=== PATIENT | female | born 1985 | race Caucasian/White ===

== ENCOUNTER 2017-07-11 07:50 | Emergency (ER) | payer OTHER ==
[2017-07-11] MEDS ORDERED: Dexamethasone 10 MG/ML VIAL ONE (08:10)
[2017-07-11] MEDS ORDERED: diphenhydrAMINE 50 MG/ML VIAL ONE (08:10)
[2017-07-11] MEDS ORDERED: Ondansetron HCl/PF 4 MG/2 ML Vial ONE (08:10)
[2017-07-11] MEDS ORDERED: Metoclopramide HCl 10 MG/2 ML VIAL ONE (08:10)
== END 2017-07-11 09:41 | disposition home or self-care (01) ==
LOC: ERS 07:50
DX: R51 Headache (principal)
CPT/HCPCS: 96365; 96375; J1100; J1200; J2405; J2765

== ENCOUNTER 2017-08-12 14:57 | Outpatient (CLI) | payer OTHER | END 2017-08-12 14:58 | disposition home or self-care (01) | LOC: BICMRI 14:57 | PROVIDERS: ATTEND Internal Medicine | DX: M50.10 Cervical disc disorder with radiculopathy, unspecified cervical region (principal); R51 Headache | CPT/HCPCS: 70551; 72141 ==

== ENCOUNTER 2017-08-15 08:50 | Emergency (ER) | payer OTHER | END 2017-08-15 11:09 | disposition home or self-care (01) | LOC: ERS 08:50 | DX: M54.2 Cervicalgia (principal) | CPT/HCPCS: 99283 ==

== ENCOUNTER 2017-08-18 12:25 | Outpatient (CLI) | payer OTHER | END 2017-08-18 12:26 | disposition home or self-care (01) | LOC: BICRAD 12:25 | PROVIDERS: ATTEND Specialist | DX: M47.812 Spondylosis without myelopathy or radiculopathy, cervical region (principal) | CPT/HCPCS: 72040 ==

== ENCOUNTER 2019-12-14 08:21 | Outpatient (CLI) | payer OTHER ==
--- NOTE | 2019-12-14 08:46 | RAD ---
EXAM: XR Sacroiliac Joints >=3 View DATE: 12/14/2019 12:00 AM INDICATION: Sacroiliac joint inflammation COMPARISON: None. FINDING: The subchondral bone plates of the SI joints are preserved. No periarticular erosions are e vident. The sacral arcs are preserved. No acute fracture is evident. Small phlebolith is seen within the right hemipelvis. IMPRESSION:No radiographic evidence of sacroiliitis.
--- NOTE | 2019-12-14 08:49 | RAD ---
RADIOGRAPH LUMBAR SPINE 3 VIEWS: DATE: 12/14/2019 HISTORY: 34-year-old female with low back pain FINDINGS: There are 5 lumbar-type vertebrae. Alignment is normal. Vertebral body heights and disc spaces are ma intained. There is lucency involving L5 pars interarticularis. No scoliosis. IMPRESSION: Evidence for L5 spondylolysis without spondylolisthesis. This can be confirmed with bilateral oblique views or noncontrast CT of lumbar spine with sagittal reconstructions.
--- NOTE | 2019-12-14 11:57 | RAD ---
RADIOGRAPH LUMBAR SPINE 2 VIEWS: DATE: 12/14/2019 HISTORY: 34-year-old female with low back pain. Spondylolysis suspected on 2 view radiograph earlier today. TECHNIQUE: Bilateral oblique views FINDINGS: There is a right L5 pars interarticularis defect. No definite such defect is identified on the left. IMPRESSION: L5 spondylolysis confirmed, on the right.
== END 2019-12-14 08:22 | disposition home or self-care (01) ==
LOC: BICRAD 08:21
PROVIDERS: ATTEND Internal Medicine
DX: M54.42 Lumbago with sciatica, left side (principal); M45.1 Ankylosing spondylitis of occipito-atlanto-axial region; M54.41 Lumbago with sciatica, right side; M47.816 Spondylosis without myelopathy or radiculopathy, lumbar region
CPT/HCPCS: 72100; 72202

== ENCOUNTER 2019-12-15 11:58 | Emergency (ER) | payer OTHER ==
[2019-12-15] MEDS ORDERED: Morphine 4 MG/ML VIAL ONE (12:41)
[2019-12-15 13:00] LABS: #Lymphocytes 2.7 thou/uL (1.20-3.40); #Monocytes 0.4 thou/uL (0.11-0.59); #Neutrophils 5.2 thou/uL (1.40-6.50); %Basophils 0.5 % (0.0-1.0); %Eosinophils 0.5 % (0.0-10.0); %Lymphocytes 31.9 % (21.0-51.0); %Monocytes 5.2 % (0.0-10.0); %Neutrophils 61.8 % (42.0-75.0); Hemoglobin 14.2 g/dL (12.0-16.0); Mean Corpuscular HGB CONC 33.8 g/dL (32.0-36.0); Mean Corpuscular Hemoglobin 31.2 pg (27.0-31.0); Mean Corpuscular Volume 92.3 fL (78.0-98.0); Mean Platelet Volume 7.3 fL (7.4-10.4); Platelet Count 226 thou/uL (130-400); Red Blood Cell (RBC) Count 4.55 mill/uL (4.20-5.40); White Blood Cell (WBC) Count 8.5 thou/uL (4.8-10.8)
[2019-12-15 13:05] LABS: BHCG - Serum Negative (NEGATIVE); Pregs Control Bar Appear? YES (CONTROL BAR)
[2019-12-15 13:06] LABS: Pregs Control Background? CLEAR/WHITE (CLR/WHITE)
[2019-12-15 13:15] LABS: INR-International Normal Ratio 1.1; PTT 26.2 sec (22.9-36.1); Prothrombin Time 13.9 sec (12.0-14.7)
[2019-12-15 13:28] LABS: ALT (SGPT) 22 U/L (8-55); AST (SGOT) 22 U/L (5-34); Albumin 4.7 g/dL (3.5-5.0); Alkaline Phosphatase 42 U/L (40-110); Anion Gap 14 mmol/L (10-20); BUN (Urea Nitrogen) 19 mg/dL (7.0-18.7); Bilirubin, Total 0.6 mg/dL (0.2-1.2); Calc. Creatinine Clearance 0 mL/min (70-130); Calcium 9.5 mg/dL (7.8-10.44); Carbon Dioxide 25 mmol/L (22-29); Chloride 103 mmol/L (98-107); Estimated GFR-MDRD 69; Glucose 83 mg/dL (70-105); Potassium 3.6 mmol/L (3.5-5.1); Protein, Total 7.7 g/dL (6.0-8.3); Sodium 138 mmol/L (136-145)
--- NOTE | 2019-12-15 13:41 | MRI ---
MRI LUMBAR SPINE WITHOUT CONTRAST: Date: 12/15/2019 HISTORY: Low back pain and numbness in bilateral feet and decreased sensation in the lateral legs bilaterally. FINDINGS: The vertebral body and disc heights and signal are maintained. No focal disc herniation, central natalie l stenosis, or neural foraminal stenosis seen. The conus medullaris ends at L1 level. The paraspinal musculature is normal. IMPRESSION: Normal exam. POS: OFF
== END 2019-12-15 15:45 | disposition home or self-care (01) ==
LOC: ERS 11:58
DX: M54.5 Low back pain (principal); R20.2 Paresthesia of skin
CPT/HCPCS: 36415; 72148; 80053; 84703; 85025; 85610; 85730; 86850; 86900; 86901; 99284; J2270

== ENCOUNTER 2022-07-22 14:45 | Outpatient (CLI) | payer BC | END 2022-07-22 14:46 | disposition home or self-care (01) | LOC: BICMAMMO 14:45 | PROVIDERS: ATTEND Internal Medicine | DX: N64.4 Mastodynia (principal); N64.89 Other specified disorders of breast | CPT/HCPCS: 77066; G0279 ==